=== PATIENT | male | born 1945 | race Caucasian/White ===

== ENCOUNTER → 2017-06-24 | Outpatient (CLI) | payer MEDICARE ==
[~2017-06-24] MED LIST: CENTRUM SILVER PO; FLOMAX0.4 MG PO; KEFLEX PO; TYLOX 5/500 CAP1 CAP PO
--- NOTE | ~2017-06-24 | US140 ---
[facility] A Service of [facility] RADIOLOGY TEXT RESULTS PATIENT: JOAO PAULINO LOCATION: CNIV : 44 UNIT #: [id number] AGE: [address]: KEV MCGINNIS APRN SEX: M ORDER DR: [id number] [facility] [address] [place], [place] [address] [id number] O MR#: [id number] Acc #: [id number] NAME: JOAO PAULINO : 1945 SEX: M STUDY DATE/TIME: 06/24/2017 16:17 UNIT: CNIV ROOM: STUDY DESCRIPTION: [facility] [place] Veins Unilat or [employer] Stdy Attending Physician: Kev Mcginnis Aprn Referring Physician: Kev Mcginnis Aprn Ordering Physician: Kev Mcginnis Aprn Primary Care Physician: Francesco Loyola M.D. MEDICAL IMAGING REPORT This report is preliminary unless electronic signature is present EXAM Left upper extremity venous Doppler 06/24 HISTORY Left hand swelling for one week TECHNIQUE Maldonado-scale, color flow, and spectral Doppler waveform analysis is performed of the left upper extremity venous system. FINDINGS All of the venous structures demonstrate normal compressibility and color flow. No superficial or deep venous thrombosis is identified. IMPRESSION Negative left upper extremity venous Doppler. Dictated by... Chalino Antunez Jr., M.D. THIS IS AN ELECTRONICALLY VERIFIED REPORT Chalino Antunez Jr., M.D. at 06/24/2017 10:34 PM RLK/to TD: 06/24/2017 20:34 JOB #: [id number] MEDICAL IMAGING REPORT [facility] A Service [facility] RADIOLOGY TEXT RESULTS PATIENT: JOAO PAULINO LOCATION: CNIV : 44 UNIT #: [id number] AGE: [address]: KEV MCGINNIS APRN SEX: M ORDER DR: Page 1 of 1 COPY
== END | disposition home or self-care (01) ==
LOC: CNIV 15:49
DX: M79.89 Other specified soft tissue disorders (principal)
CPT/HCPCS: 93971